=== PATIENT | female | born 2000 | race Hispanic/Latino ===

== ENCOUNTER 2018-09-23 19:03 | Emergency (ER) | payer OTHER ==
[~2018-09-23] VITALS: Ht 152.4 cm; Wt 43.2 kg
[2018-09-23] MEDS ORDERED: BUSP1TAB PO (19:14)
[2018-09-23] MEDS ORDERED: diazePAM 5 MG TAB PO ONE (19:45)
[2018-09-23] MEDS ORDERED: VALI5TAB PO (20:59)
[2018-09-23 21:04] VITALS: BP 96/55
== END 2018-09-23 21:06 | disposition home or self-care (01) ==
LOC: M ED 19:03
DX: M62.830 Muscle spasm of back (principal)

== ENCOUNTER → 2018-10-20 | Outpatient (REF) | payer OTHER ==
[~2018-10-20] MED LIST: BUSP1TAB PO; VALI5TAB PO
== END ==
LOC: M SFHCLERA 15:53
PROVIDERS: ATTEND Nurse Practitioner Family
DX: N92.6 Irregular menstruation, unspecified (principal)

== ENCOUNTER 2019-01-31 13:38 | Emergency (ER) | payer OTHER ==
[~2019-01-31] VITALS: Ht 152.4 cm; Wt 41.5 kg
[2019-01-31 14:00] LABS: URINE PREG TEST NEGATIVE (NEGATIVE)
[2019-01-31] MEDS ORDERED: PYRI1TAB5 PO (17:07)
[2019-01-31] MEDS ORDERED: FLAG500T PO (17:07)
[2019-01-31] MEDS ORDERED: metroNIDAZOLE (FLAGYL) 500 MG TAB PO ONE (17:15)
[2019-01-31] MEDS ORDERED: PHENAZOPYRIDINE 100 MG TAB PO ONE (17:15)
--- NOTE | 2019-01-31 17:15 | REP ---
Clinical: Right lower quadrant pelvic pain . Technique: Transabdominal pelvic ultrasound followed by transvaginal examination for better evaluation of the endometrium and adnexa with color Doppler evaluation of the ovaries. Findings: Bladder is under distended. Normal anteverted uterus measures 7.6 x 3.2 x 4.7 cm . The endometrial complex measures 11.9 mm thickness. No discrete uterine or endometrial abnormalities are appreciated. Bilateral ovaries are normal in appearance and vascularity without evidence for torsion. Right ovary measures 3.2 x 2.0 x 3.0 cm with 2.3 cm hemorrhagic cyst / follicle ; R I = 0.42 . Left ovary measures 2.6 x 1.7 x 2.1 cm ; R I = 0.71 . Small amount of free fluid in the adnexa noted. . Impression: 1. The uterus appears relatively normal. 2. 2.3 cm hemorrhagic cyst in the right ovary possibly related to patient's symptoms. Bilateral ovaries are otherwise normal and without torsion. Electronically Signed by Mikhail Pressley MD 01/31/2019 05:07 P
[2019-01-31 17:19] VITALS: BP 93/54
== END 2019-01-31 17:25 | disposition home or self-care (01) ==
LOC: M ED 13:38
DX: N76.0 Acute vaginitis (principal); Z87.59 Personal history of other complications of pregnancy, childbirth and the puerperium; Z87.440 Personal history of urinary (tract) infections; N83.201 Unspecified ovarian cyst, right side; Z79.899 Other long term (current) drug therapy

== ENCOUNTER 2019-10-10 20:06 | Outpatient (CLI) | payer OTHER ==
[~2019-10-10] VITALS: Ht 152.4 cm; Wt 44.7 kg
[~2019-10-10 20:06] MED LIST changes: +FLAG500T PO; +PYRI1TAB5 PO
[2019-10-10 20:24] VITALS: BP 111/58
[2019-10-10 21:08] LABS: APPEARANCE, URINE CLEAR (CLEAR); BACTERIA, URINE AUTO 1+ (NEGATIVE); BILIRUBIN, URINE AUTO NEGATIVE (NEGATIVE); BLOOD, URINE BLOOD NEGATIVE (NEGATIVE); COLOR, URINE STRAW (YELLOW); GLUCOSE, URINE (UA) AUTO NEGATIVE (NEGATIVE); KETONE, URINE AUTO NEGATIVE (NEGATIVE); LEUKOCYTE ESTERASE, URINE AUTO NEGATIVE (NEGATIVE); NITRITE, URINE AUTO NEGATIVE (NEGATIVE); PROTEIN, URINE AUTO NEGATIVE (NEGATIVE); RBC, URINE AUTO 1 /HPF (0-3); SPECIFIC GRAVITY URINE AUTO 1.001 (1.002-1.035); SQUAMOUS EPITHELIAL CELL UR AU 2 /HPF (0-6); UROBILINOGEN, URINE AUTO 0.2 mg/dL (0.0-2.0); WBC, URINE AUTO 0 /HPF (0-3)
--- NOTE | 2019-10-10 22:16 | IPNPDOC ---
Text Note Date of Service The patient was seen on 10/10/19. NOTE 18 yo at 24+0 weeks gestation presented to L&D with the complaint of abdominal and lower pelvic pain that started this afternoon. She reports having intercourse with her this morning and the pain started several hours after that. She describes it as tightening. It persisted for a few hours but has since resolved while she waited in triage. She denies any vaginal bleeding or leakage of fluid. She endorses excellent movement. She also denies any fevers/chills, SOB, chest pain, or dysuria. Chaperoned by L&D RN Vitals - VSS, afebrile, normotensive, non tachycardic General - AAOX3, sitting up in bed, NAD, pleasant and conversant Abdomen - Soft, gravid. No fundal tenderness. No tenderness to palpation throughout all 4 quadrants of abdomen. Pelvic - Normal external genitalia. Speculum placed into the vagina. Vaginal vault normal. Scant white discharge in vaginal vault. Cervix visualized and normal in appearance. Closed. Speculum removed. Cervix confirmed closed/thick/high, posterior to digital exam. FHR tracing - Appropriate for gestational age. No decels. No ctx on toco. Formal TAUS and TVUS - WHITNEY 13.cm, Placenta normal in appearance and posterior/fundal in location. Cervical length 4.1cm on TVUS with no evidence of funneling. Fetus breech. UA - SG 1.001, neg nitrite, neg leuk est No evidence of labor or infection. Cervix closed/thick/high and length >4cm on formal imaging. UA clean. Pain was completely resolved when patient got to triage. No ctx on toco. Suspect tightening pain related to earlier intercourse today. She has a follow up appointment next week. Return to care sooner for any urgent concerns. All questions answered. DO HU Khan,Brant, I+O VS, Brant, I+O Vital Signs Date Time Temp Pulse Resp B/P (MAP) Pulse Ox O2 Delivery O2 Flow Rate FiO2 10/10/19 20:24 97.7 80 111/58 (75) 97.7 CRISTIAN ANTOINE DO Oct 10, 2019 22:16
--- NOTE | 2019-10-10 22:30 | REPVR ---
PROCEDURE INFORMATION: Exam: US , Limited Exam date and time: 10/10/2019 9:51 PM Age: 18 years old Clinical indication: Lmp or gestational age (in weeks): 24 wks; Labor and delivery abnormalities; Pre-term labor; Without delivery; ; Additional info: 24 weeks , contractions, view placenta, cervix, ervin TECHNIQUE: Imaging protocol: Real-time ultrasound of the maternal uterus with image documentation. Exam focused on the clinical indication. COMPARISON: US PELVIC NON-OB COMPLETE 01/31/2019 4:43 PM (The report from this study was not available for review at the time of this interpretation.) FINDINGS: Last menstrual period: 04/25/2019 GESTATION: Gestation: There is a single live intrauterine gestation. An anatomical survey was not performed. Heart rate: 139 bpm Presentation: Breech Placenta: The location of the placenta is posterior and fundal. No placenta previa or placental abruption is noted. Amniotic fluid: The amniotic fluid index measures 13.5 cm, which is within normal limits. BIOMETRY: Estimated gestational age by LMP: 24 weeks 0 days Estimated due date by LMP: 01/30/2020 MATERNAL: Cervix: The cervix measures 4.1 cm in length. No funneling of the internal os of the cervix is noted. IMPRESSION: Single live intrauterine gestation in breech position. Electronically signed by: Vasile Martinez On 10/10/2019 22:32:29 PM
== END 2019-10-10 22:10 | disposition home or self-care (01) ==
LOC: M LDO 20:06
PROVIDERS: ATTEND Obstetrics & Gynecology
DX: O26.892 Other specified pregnancy related conditions, second trimester (principal); Z3A.24 24 weeks gestation of pregnancy; R10.2 Pelvic and perineal pain
CPT/HCPCS: 59025; 76815; 76817; 81001; 87086; G0378; G0463

== ENCOUNTER → 2019-10-11 | Outpatient (CLI) | payer OTHER ==
--- NOTE | 2019-10-11 11:49 | REP ---
Focused right breast sonography: History: 18-year-old at 23 weeks 2 days with pea-sized palpable lump in the right breast palpated by the patient. This is located laterally at 9 o'clock in the right breast near the axilla region. Findings: The area of the palpable lump is scanned as well as 8 to 10 o'clock region. Heterogeneous fibroglandular background echotexture is seen. No cyst, mass, acoustic shadowing or other abnormality is seen sonographically. Impression: BIRADS category 1 negative right breast sonographic findings. Clinical followup is advised. Electronically Signed by Mingo Jackson MD 10/11/2019 11:50 A
== END ==
LOC: M RAD 10:18
PROVIDERS: ATTEND Registered Nurse Maternal Newborn
DX: O26.892 Other specified pregnancy related conditions, second trimester (principal); N63.10 Unspecified lump in the right breast, unspecified quadrant; Z3A.23 23 weeks gestation of pregnancy

== ENCOUNTER 2019-11-06 23:26 | Outpatient (CLI) | payer OTHER ==
[~2019-11-06] VITALS: Ht 152.4 cm; Wt 48.2 kg
[2019-11-06 23:48] VITALS: BP 102/58
[2019-11-07 00:31] LABS: HEMATOCRIT 31.3 % (36.0-47.0); HEMOGLOBIN 10.7 g/dl (12.0-15.5); MEAN CORPUSCULAR HEMOGLOBIN 32.2 pg (27.0-33.0); MEAN CORPUSCULAR HGB CONC 34.2 g/dl (32.0-36.5); MEAN CORPUSCULAR VOLUME 94.3 fl (80.0-96.0); PLATELET COUNT, AUTOMATED 310 10^3/uL (150-450); RED BLOOD COUNT 3.32 10^6/uL (4.00-5.40); WHITE BLOOD COUNT 9.3 10^3/uL (4.0-10.0)
[2019-11-07 00:31] LABS: APPEARANCE, URINE HAZY (CLEAR); BACTERIA, URINE AUTO 1+ (NEGATIVE); BILIRUBIN, URINE AUTO NEGATIVE (NEGATIVE); BLOOD, URINE BLOOD NEGATIVE (NEGATIVE); COLOR, URINE YELLOW (YELLOW); GLUCOSE, URINE (UA) AUTO NEGATIVE (NEGATIVE); KETONE, URINE AUTO NEGATIVE (NEGATIVE); LEUKOCYTE ESTERASE, URINE AUTO NEGATIVE (NEGATIVE); MUCUS, URINE SMALL (NEGATIVE); NITRITE, URINE AUTO NEGATIVE (NEGATIVE); PROTEIN, URINE AUTO NEGATIVE (NEGATIVE); RBC, URINE AUTO 0 /HPF (0-3); SPECIFIC GRAVITY URINE AUTO 1.009 (1.002-1.035); SQUAMOUS EPITHELIAL CELL UR AU 17 /HPF (0-6); UROBILINOGEN, URINE AUTO 0.2 mg/dL (0.0-2.0); WBC, URINE AUTO 1 /HPF (0-3)
--- NOTE | 2019-11-08 20:25 | HPE ---
DATE OF ADMISSION: 11/07/2019 HISTORY: This lady is a 18-year-old 2, para 0, abortus 1, last menstrual period (LMP) 04/25/19, estimated date of confinement (EDC) 01/30/2020 at 20 weeks of gestation, history of vaginal bleeding times one, more of spotting than bleeding, no contractions and no further discharge. Risk factor she has a low body mass index (BMI), dehydrated, anemia, malnourished and suffers from depression. LABORATORY DATA: O+, HIV negative, hepatitis negative, RPR negative, rubella immune. Varicella immune. Urine negative. Gonorrhea and chlamydia negative. Hemoglobin 10.7, hematocrit 31.3, platelets are 310. Urine 1.009, pH 8, ketones negative, Betke-Kleihauer is pending. Blood pressure 102/58, respirations 16, pulse 78, temperature 97.7. Ultrasound showed vertex presentation. Amniotic fluid normal, heart rate 140, cervix 3.4 cm long and closed. The monitor shows category one strip. No decelerations. Accelerations are noted. No contractions. Moderate variability. Symphysis fundus height is 28, four quadrant bowel sounds are noted. Nontender uterus. Pelvic examination: Cervix is closed, high posterior. No vaginal loss of blood on the finger. PLAN: Plan is to hydrate the patient, discharge the patient, maintain appointment 11/15/2019 and do her 28-week labs prior to appointment. The patient was discharged as undelivered 40-minute discussion with examination. cc: MANAGER PHARMACEUTICAL Tita ROSALES
== END 2019-11-07 01:55 | disposition home or self-care (01) ==
LOC: M LDO 23:26
PROVIDERS: ATTEND Obstetrics & Gynecology
DX: O26.852 Spotting complicating pregnancy, second trimester (principal); Z3A.20 20 weeks gestation of pregnancy; Z68.1 Body mass index [BMI] 19.9 or less, adult; O99.282 Endocrine, nutritional and metabolic diseases complicating pregnancy, second trimester; E86.0 Dehydration; O99.012 Anemia complicating pregnancy, second trimester; D64.9 Anemia, unspecified; O99.342 Other mental disorders complicating pregnancy, second trimester; F32.9 Major depressive disorder, single episode, unspecified; O25.12 Malnutrition in pregnancy, second trimester
CPT/HCPCS: 36415; 59025; 76815; 81001; 85027; 85460; G0378; G0463

== ENCOUNTER → 2019-12-30 | Outpatient (CLI) | payer OTHER | LOC: M LAB 09:53 | PROVIDERS: ATTEND Obstetrics & Gynecology | DX: O26.619 Liver and biliary tract disorders in pregnancy, unspecified trimester (principal); K83.1 Obstruction of bile duct ==

== ENCOUNTER 2020-01-03 12:02 | Inpatient (IN) | payer OTHER ==
[~2020-01-03] VITALS: Ht 152.4 cm; Wt 50.6 kg
[2020-01-03 12:23] VITALS: BP 116/62
[2020-01-03] MEDS ORDERED: PRENTAB9 PO (12:31)
[2020-01-03] MEDS ORDERED: URSO300C3 PO (12:31)
[2020-01-03] MEDS ORDERED: FERR325T3 PO (12:31)
[2020-01-03] MEDS ORDERED: VITA100T59 PO (12:31)
[2020-01-03] MEDS ORDERED: miSOPROStol 50 MCG 1/2 TAB (S0191) PO ONE (13:30)
--- NOTE | 2020-01-03 13:57 | HPEPDOC ---
Obstetrical History & Physical General Date of Admission Jan 03, 2020 at 12:02 History of Present Illness Jamia is a 19yo at 36+1wks gestation, EDC [id number]. EDC by LMP of [id number], c/w 9+1wk US. She endorses +FM, denies LOF/VB/CTX. She is being admitted to D for schedule induction of labor d/t diagnosis of ICHP; betamethasone complete on [id number]. This is complicated by ICHP (Bile Acids 45.6, elevated LFTs) - started on ursodiol Other complications: -underweight with low weight gain (19lbs); Recent GS 06DEC2019 - fetus was 53%tile -Anemia, taking iron/vitamin c GBS Negative, COVID Negative, A Positive blood type OB hx: 1x SAB in 2017, uncomplicated Chief Complaint: Induction of labor Information Provided By: Patient Age: 19 : 2 Term: 0 Pre-term: 0 Abortions: 1 Livin Care Care: Good Care Number of Visits: 9 Dating Final EDC: January 30, 2020 Final EDC for Daily Update: January 30, 2020 Final EDC by: LMP Antepartum Course Height (inches): 60 Pre- weight (lbs.): 90 Admission Weight (lbs.): 109 Change in Weight (lbs.): 19 Past Medical History Past Obstetrical History : Past Obstetrical History: Multigravida [employer]QU[employer]MENT [employer]PERATOR History: Spontaneous Past Medical History Medical History Hip Arthritis Surgical History: Denies/None Family History Significant Family History: No pertinent family hx Social History Marital Status: Family situation: Spouse/partner home Psychosocial History: No pertinent psych hx * Smoker: non-smoker Alcohol: Denies Drugs: denies Imunizations Tdap status: current Influenza Status: current Allergies Coded Allergies: No Known Allergies (Unverified , 01/03/20) Medications Scheduled Ascorbic Acid (Vitamin C) 100 Mg Tablet, 500 MG PO DAILY Ferrous Sulfate (Ferrous Sulfate) 325 Mg Tablet.dr, 325 MG PO DAILY No.137/Iron/Folic Acd ( Vitamin Tablet) 1 Each Tablet, 1 TAB PO DAILY Ursodiol (Ursodiol) 300 Mg Capsule, 300 MG PO TID Physical Examination Physical Examination GENERAL: Alert and oriented times three. ABDOMEN: Gravid and non-tender to touch. FETUS: Is vertex by sterile vaginal examination, confirmed by TAUS. EFW by [place] 5-6lbs HEART RATE: Regular rate. LUNGS: Observed nonlabored breathing. EXTREMITIES: No edema. Vital Signs/I&O O: VSS, normotensive, afebrile FHR: 130s, moderate variability, + accels, no decels noted CTX: occassional, mild by palpation; pt denies feeling VE: L/C/H and posterior Vital Signs Date Time Temp Pulse Resp B/P (MAP) Pulse Ox O2 Delivery O2 Flow Rate FiO2 01/03/20 12:23 98.3 91 116/62 (80) Laboratory Data 24H LABS Laboratory Tests 2 01/03/20 12:12: Serology Scanned Report Hepatitis B Testing Pertinent Laboratoy Data Blood Type: A+ RBC Antibody Screen: Negative HIV: Negative Hepatitis B: Negative Rapid Plasma Reagin: Nonreactive Rubella: Immune Varicella: Immune Chlamydia/Gonorrhea: Negative Group B Streptococcus: Negative Quad Screen Test: Negative Anatomy Ultrasound Ultrasound Date: Sep 13, 2019 Placenta Location: Posterior Normal Anatomy: Yes Placenta Previa: No Steroid Therapy Steroid Therapy: Yes Date #1: Dec 29, 2019 Date #2: Dec 31, 2019 Reason Scheduled IOL at 36+1 weeks d/t diagnosis of ICHP. Assessment/Plan Assessment Jamia is a 19yo at 36+1wks gestation being admitted for IOL d/t ICHP, betamethasone complete. GBS Negative, A Positive, COVID negative. Category I FHT. Plan P: Admit to LND and consent for induction, labor and delivery. PIV start, admission and LFT labs collected PO and IV hydration Start IOL with Buccal Cytotec, 50mcg, with plan to place CRB when cervix adequately ripened Continuous monitoring for 1 hour after cytotec administration, then can be intermittent with Category I tracing CEFM with pitocin, epidural, and/or other than Category I FHT Anticipate Consult with OB as indicated STEVE HOUSE CNM Jan 03, 2020 13:57
[2020-01-03 14:04] LABS: BASO # 0.1 10^3/uL (0.0-0.2); BASO % 0.5 % (0.0-1.0); EOS # 0.1 10^3/uL (0.0-0.5); EOS % 1.2 % (0.0-3.0); HEMATOCRIT 38.1 % (36.0-47.0); HEMOGLOBIN 13.4 g/dl (12.0-15.5); LYMPH # 2.5 10^3/uL (1.5-5.0); LYMPH % 26.2 % (24.0-44.0); MEAN CORPUSCULAR HGB CONC 35.2 g/dl (32.0-36.5); MEAN CORPUSCULAR VOLUME 90.9 fl (80.0-96.0); MONO # 0.8 10^3/uL (0.0-0.8); MONO % 8.8 % (0.0-5.0); NEUTROPHILS # 5.9 10^3/uL (1.5-8.5); NEUTROPHILS % 62.6 % (36.0-66.0); PLATELET COUNT, AUTOMATED 406 10^3/uL (150-450); RED BLOOD COUNT 4.19 10^6/uL (4.00-5.40); WHITE BLOOD COUNT 9.4 10^3/uL (4.0-10.0)
[2020-01-03 14:14] VITALS: BP 116/75
[2020-01-03 14:31] LABS: ALT/SGPT 100 U/L (12-78); BILIRUBIN,TOTAL 0.5 MG/DL (0.2-1.0); CREATININE FOR GFR 0.55 MG/DL (0.55-1.30); GLOMERULAR FILTRATION RATE > 60.0 (>60); LDH LACTATE DEHYDROGENASE 186 U/L (84-246); URIC ACID 4.9 MG/DL (2.6-6.0)
[2020-01-03 15:17] VITALS: BP 127/78
[2020-01-03 16:24] VITALS: BP 107/61
[2020-01-03 17:49] VITALS: BP 111/62
[2020-01-03] MEDS: miSOPROStol 50 MCG 1/2 TAB (S0191) PO SCH ×2 (18:20→22:41)
[2020-01-03 18:21] VITALS: BP 117/68
[2020-01-03] MEDS ORDERED: PROMETHAZINE INJ 25 MG/ML VIAL (J2550) IV ONE (23:45)
[2020-01-04] VITALS (29 sets, daily range): BP systolic 102–139; BP diastolic 55–97
--- NOTE | 2020-01-04 00:27 | IPNPDOC ---
Text Note Date of Service The patient was seen on 01/04/20. NOTE Intrapartum Note Jamia is a 19yo with SIUP at 36w1d undergoing IOL for IHCP with elevated bile acids and very mildly elevated LFTs. Induction was started with oral cytotec, and she has received 3 doses total now. She is quite uncomfortable with ctx and requesting pain meds. Vitals wnl, afebrile Cat I FHRT with bl 120's, +accels, -decels, mod abdias [place]: ctx q1-5min SCE: 1/80/-2, posterior and soft. Patient does not tolerate exam well so will not place goodman cervical balloon at this time Will plan to start pitocin when next cytotec due around 0200 IV stadol 2mg and IV phenergan 12.5mg in latent labor Candidate for epidural in active labor Will continue to closely monitor Safe to proceed Dr. Maegan Puga MD VS,Brant, I+O VS, Brant, I+O Laboratory Tests 01/03/20 13:52 Vital Signs Date Time Temp Pulse Resp B/P (MAP) Pulse Ox O2 Delivery O2 Flow Rate FiO2 01/03/20 18:21 65 16 117/68 (84) 01/03/20 12:23 98.3 Maegan Puga MD Jan 04, 2020 00:27
[2020-01-04] MEDS: BUTORPHANOL 2 MG/ML INJ (J0595) IV PRN ×2 (00:39→05:07)
[2020-01-04] MEDS: OXYTOCIN DRIP 30 UNITS in IV 1 EA IV SCH ×2 (03:04→09:48)
--- NOTE | 2020-01-04 09:10 | IPNPDOC ---
Obstetrical Progress Note Date of Service Jan 04, 2020 Subjective Intrapartum Note S: Received report from Dr. Puga during board sign out and assumed care of Jamia, who is a 19yo with SIUP at 36w2d undergoing IOL for IHCP with elevated bile acids and very mildly elevated LFTs. Induction was started with oral cytotec, and she has received 3 doses total now. Pitocin was started early this morning, but turned off around 0530 after a prolonged deceleration. She has also received Stadol/phenergan x2 for pain medication and she has no complaints of pain at this time. O: VSS, BP normotensive, afebrile FHR 125-130, moderate variability, no accels or decels CTX by [place]: q2.5-5 VE: 1/80/-2, posterior and soft (unchanged from previous exam). Patient does not tolerate exam. A: 19yo at 36+2wks, IOL for ICHP, not in labor, difficult SCE, Category I FHT P: Allow patient to eat and shower, then restart pitocin 2 hours after eating Plan to offer epidural and place CRB when comfortable CEFM x2 Close monitoring of maternal/ status Will continue to closely monitor Safe to proceed Anticipate Consult with OB as indicated Objective Vital Signs Date Time Temp Pulse Resp B/P (MAP) Pulse Ox O2 Delivery O2 Flow Rate FiO2 01/04/20 07:27 68 18 102/55 (71) 01/04/20 05:07 Room Air 01/04/20 00:39 99.2 Assessment Heart Rate Tracing: Category I Assessment and Plan Status: Reassuring Anticipate: Vaginal Delivery STEVE HOUSE CNM Jan 04, 2020 09:10
[2020-01-04] MEDS: ursodioL 300 MG CAP PO SCH ×3 (10:07→21:00)
[2020-01-04] MEDS: SLF 3 ML SYR IV SCH ×2 (10:08→22:00)
[2020-01-04] MEDS ORDERED: LR 1,000 ML IV SCH (10:11)
[2020-01-04] MEDS ORDERED: SLF 3 ML SYR IV PRN (10:15)
--- NOTE | 2020-01-04 12:02 | IPNPDOC ---
Obstetrical Progress Note Date of Service Jan 04, 2020 Subjective Intrapartum Note S: Pitocin restarted at 0948 and pt feeling intermittent pain with contractions. In room for bedside US WHITNEY. O: VSS, BP normotensive, afebrile FHR: 135, moderate variability, + accels , late decelerations and spontaneous decelerations noted startingat 1024, RN in room performing interventions; CTX by TOCO: irregular Pitocin running at 4mu/min; turned off at 1129 VE: deferred WHITNEY: SDP 3.06 in LLQ A: 19yo at 36+2wks, IOL for ICHP, Category II FHT. Dr. Conklin called to review tracing and receive orders. P: CEFM x2 Labs ordered: pre-E, bile salts, Type and Cross, PT/PTT, bilirubin and CBC BPP with SD ratio ordered Plan to restart pitocin and perform SAILING MASTER; if fetus tolerates, will continue induction; if fails, will plan for delivery Close maternal/ monitoring Co-Manage with OB Objective Vital Signs Date Time Temp Pulse Resp B/P (MAP) Pulse Ox O2 Delivery O2 Flow Rate FiO2 01/04/20 11:53 63 18 115/74 (88) 01/04/20 10:48 99.8 01/04/20 05:07 Room Air Assessment Heart Rate Tracing: Category II Sterile Vaginal Examination Postion/Presentation: Cephalic presentation STEVE HOUSE CNM Jan 04, 2020 12:02
[2020-01-04 13:00] LABS: ALT/SGPT 74 U/L (12-78); BILIRUBIN,DIRECT 0.1 MG/DL (0.0-0.2); BILIRUBIN,TOTAL 0.5 MG/DL (0.2-1.0); CREATININE FOR GFR 0.57 MG/DL (0.55-1.30); GLOMERULAR FILTRATION RATE > 60.0 (>60); LDH LACTATE DEHYDROGENASE 167 U/L (84-246); URIC ACID 5.8 MG/DL (2.6-6.0)
[2020-01-04 13:08] LABS: BASO % 0.3 % (0.0-1.0); EOS # 0.1 10^3/uL (0.0-0.5); EOS % 0.7 % (0.0-3.0); HEMATOCRIT 37.8 % (36.0-47.0); HEMOGLOBIN 12.9 g/dl (12.0-15.5); LYMPH # 1.7 10^3/uL (1.5-5.0); MEAN CORPUSCULAR HEMOGLOBIN 31.5 pg (27.0-33.0); MEAN CORPUSCULAR HGB CONC 34.1 g/dl (32.0-36.5); MEAN CORPUSCULAR VOLUME 92.4 fl (80.0-96.0); MONO # 1.1 10^3/uL (0.0-0.8); MONO % 11.1 % (0.0-5.0); NEUTROPHILS % 70.5 % (36.0-66.0); PLATELET COUNT, AUTOMATED 343 10^3/uL (150-450); RED BLOOD COUNT 4.09 10^6/uL (4.00-5.40); WHITE BLOOD COUNT 9.9 10^3/uL (4.0-10.0)
[2020-01-04 14:19] LABS: APPEARANCE, URINE CLEAR (CLEAR); BACTERIA, URINE AUTO 1+ (NEGATIVE); BILIRUBIN, URINE AUTO NEGATIVE (NEGATIVE); BLOOD, URINE BLOOD 2+ (NEGATIVE); COLOR, URINE STRAW (YELLOW); GLUCOSE, URINE (UA) AUTO NEGATIVE (NEGATIVE); KETONE, URINE AUTO NEGATIVE (NEGATIVE); LEUKOCYTE ESTERASE, URINE AUTO NEGATIVE (NEGATIVE); NITRITE, URINE AUTO NEGATIVE (NEGATIVE); PROTEIN, URINE AUTO NEGATIVE (NEGATIVE); RBC, URINE AUTO 0 /HPF (0-3); SPECIFIC GRAVITY URINE AUTO 1.003 (1.002-1.035); SQUAMOUS EPITHELIAL CELL UR AU 1 /HPF (0-6); UROBILINOGEN, URINE AUTO 0.2 mg/dL (0.0-2.0); WBC, URINE AUTO 1 /HPF (0-3)
--- NOTE | 2020-01-04 14:24 | REP ---
REASON: Potential induction. Limited exam was ordered and performed. Multiple ultrasonographic images of the gravid uterus show a single living intrauterine gestation in the cephalic presentation. The subjective amniotic fluid volume is within normal limits. The calculated amniotic fluid index is 12.9 with an expected range 7.6 to 24.8. Doppler interrogation of the heart shows a heart rate of 140 beats per minute. The cervix measures 2.8 cm in length and is closed. biophysical profile score is 2 for breathing, 2 for movement, 2 for tone, and 2 for amniotic fluid volume giving a some total of 8 out of 8. BPD 9.0 cm = 36 weeks 2 days HC 31.7 cm = 35 weeks 4 days AC 30.5 cm = 34 weeks 3 days FL 6.6 cm = 33 weeks 6 days The estimated weight is 2459 grams which is at the 23rd percentile for [id number]-8-day gestational age. Doppler interrogation of the umbilical artery shows an A/B ratio of 2.48. This is within the normal range. IMPRESSION: Single living intrauterine gestation as described above with an estimated gestational age of 34 weeks 5 days via composite criteria and an estimated date of delivery of 02/10/2020 by today's exam. No further evaluation was requested or performed. Electronically Signed by Mateusz Egan DO 01/04/2020 02:29 P
[2020-01-04 14:46] LABS: CREATININE,RANDOM URINE < 13.0 MG/DL; TOTAL PROTEIN,RANDOM URINE 11.9 MG/DL (0.0-12.0)
[2020-01-04] MEDS ORDERED: FENTANYL 2MCG/ML ROPIVACAINE 0.2% IN 0.9% NACL 100ML IVBAG As Ordered ONE (17:15)
[2020-01-04] MEDS ORDERED: EPIDURAL/PCA KEYS XX PRN (19:00)
[2020-01-04] MEDS ORDERED: FENTANYL/ROPIVACAINE/NACL BAG 100 ML EPIDURAL SCH (19:00)
[2020-01-04] MEDS ORDERED: diphenhydrAMINE 50MG/ML VIAL (J1200) IV PRN (19:00)
[2020-01-04] MEDS ORDERED: NALOXONE INJ 0.4MG/1ML VIAL (J2310 PER 1MG) IV PRN (19:00)
[2020-01-04] MEDS ORDERED: EPIDURAL COMMENT XX SCH (19:00)
[2020-01-04] MEDS ORDERED: LACTATED RINGER'S 1000 ML IV PRN (19:00)
[2020-01-04] MEDS ORDERED: ePHEDrine SULFATE 25 MG/5 ML(5MG/ML) SYRINGE IV PRN (19:00)
[2020-01-04] MEDS ORDERED: REFRIGERATOR IV KEYS XX PRN (19:00)
[2020-01-04] MEDS ORDERED: ONDANSETRON 4MG/2ML VIAL IV PRN (19:00)
[2020-01-05] VITALS (33 sets, daily range): BP systolic 108–170; BP diastolic 55–98
[2020-01-05] MEDS: ursodioL 300 MG CAP PO SCH (00:15)
[2020-01-05] MEDS ORDERED: ACETAMINOPHEN 500 MG TAB As Ordered ONE (05:28)
[2020-01-05] MEDS ORDERED: ACETAMINOPHEN 500 MG TAB PO ONE (05:45)
[2020-01-05] MEDS: SLF 3 ML SYR IV SCH (06:00)
[2020-01-05 06:32] LABS: HEMATOCRIT 38.9 % (36.0-47.0); HEMOGLOBIN 13.6 g/dl (12.0-15.5); MEAN CORPUSCULAR HEMOGLOBIN 32.4 pg (27.0-33.0); MEAN CORPUSCULAR VOLUME 92.6 fl (80.0-96.0); PLATELET COUNT, AUTOMATED 312 10^3/uL (150-450); WHITE BLOOD COUNT 11.5 10^3/uL (4.0-10.0)
--- NOTE | 2020-01-05 08:16 | IPNPDOC ---
Obstetrical Progress Note Date of Service Jan 05, 2020 Subjective Intrapartum Note S: Received report from Dr. Conklin during board sign out and assumed care of Jamia, who is a 19yo with SIUP at 36w3d undergoing IOL for IHCP with elevated bile acids and very mildly elevated LFTs. Induction was started with oral cytotec, an d she has received 3 doses total. Pitocin was restarted yesterday afternoon; she received a CRB, now out. She is s/p AROM with clear fluid at [address] Conklin, her cervix is now 9-9.5cm. Currently, Jamia is sleeping comfortably after epidural bolus. O: VSS, BP normotensive, afebrile FHR 150s, minimal variability, +accels, no decels CTX by [place]: q4-5 VE: Deferred A: 19yo at 36+3wks, IOL for ICHP, active labor, Category II FHT P: CEFM x2 Interventions as necessary for Category II FHT Close monitoring of maternal/ status Safe to proceed Anticipate Consult with OB as indicated Objective Vital Signs Date Time Temp Pulse Resp B/P (MAP) Pulse Ox O2 Delivery O2 Flow Rate FiO2 01/05/20 07:11 58 18 136/74 (94) 01/05/20 06:39 98.8 01/04/20 05:07 Room Air Sterile Vaginal Examination Postion/Presentation: Cephalic presentation Assessment and Plan Anticipate: Vaginal Delivery STEVE HOUSE CNM Jan 05, 2020 08:16
--- NOTE | 2020-01-05 08:41 | IPN ---
DATE: 01/04/2020 This lady is a 19-year-old, 2, para 0, who is at 36 weeks and 2 days today. Expected date of confinement (EDC) is 01/30/2020, dated by her last menstrual periods (LMP) of 04/25/2019 with a complementary ultrasound at 9 weeks 1 day. Her risk factors is that she has intrahepatic cholestasis of with bile acids of 45.6 and elevated liver function tests and she was started on Ursodiol, which did not help with her symptoms of itchy palms and itchy feet. She is underweight with low weight gain. GBS negative and COVID negative. On admission, she did not tolerate pelvic examination at all. However, by Valente maneuver, she was found to be vertex presenting, estimated weight was 5-6 pounds. After multiple attempts, she had a pelvic exam, digital exam by Alfred Stone and was found to be posterior, difficult to find the cervix, presenting part was -3. She was then given Cytotec because she was unable to tolerate any pelvic exam and therefore a Zarate balloon catheter was not practical and she had had two episodes of Cytotec. She was also given IV Stadol and Phenergan and did express desire for an epidural when she was in labor. She had on monitor occasional late deceleration after contractions. She had periods of reactivity with moderate variability. She had periods of low baseline and we were unable to proceed because of these late decelerations without a contraction. Our plan of care was to repeat her lab work and perhaps do an early epidural in order to be able to assess the cervix and possibly place a Cook catheter. We discussed with the patient the plan of care and she did have an epidural in place and a Zarate catheter. Her cervix was anterior, 2 cm, maybe 50% effaced, -3 station, not well applied to the cervix. We reviewed with her the intrahepatic cholestasis and the reason for early delivery of the baby because of her elevated bile acids and her elevated liver functions. We did discuss the differential diagnosis of having either HELLP, preeclampsia or acute fatty liver in , but she did not have any skin signs and she did have any clinical impression of these. We talked about the complications of a lady with ICP in the form of intrauterine demise, meconium in the amniotic fluid, presentation to the NICU because of chemistry instability, and the higher the bile acids the greater the risk. The optimum delivery is between 36 and 36 and 6 weeks of gestation. We repeated her chemistry and her blood work. Her white count was 9.9, which was slightly elevated from 9.4, hemoglobin 12.9, hematocrit 37.8 and platelets were 343. Her chemistry indicated that her GFR was greater than 60. Her bile acids are pending. Her ALT went from 100 down to 74. AST was 35. Direct and indirect bilirubin were within normal limits. Her protein creatinine ratio was 0.915. Leukocyte esterase were negative, ketones were negative and urine was 7.0 with a specific gravity of 1.003. On her coagulation panel her fibrinogen was elevated at 656. The rest of the examination was unremarkable. We had turned off the Pitocin and then reinstated it. We did have a category one strip with accelerations. She was normocephalic, atraumatic. Neck full range of motion. Pupils equal and reactive to light. Distal pulses symmetric. No evidence of DVT, PE or superficial phlebitis. Chest was clear bilaterally to bases. No wheezes or rhonchi. No CVA tenderness. The abdomen was soft. Symphysis fundus height was appropriate. Vertex presenting. Four quadrant bowel sounds were noted. There were no rashes, lesions or pruritus. She apparently did not have any significant pruritus while in hospital. She has no arthralgia or myalgia. No complaint joint pain. No complaint cough, wheezes, shortness of breath or dyspnea on exertion. No bleeding. Neuro complete. No frequency or urgency. No nausea, vomiting, diarrhea or constipation. No diabetic issues. No heat or cold insensitivity. She has no past SHIRT MAKER history. No surgical intervention history. Family history is noncontributory. She does not smoke, drink or abuse drugs and there is no domestic violence. She is to a soldier who is very supportive. She has no known allergies. She is GBS negative. Evaluating her ultrasound in order to proceed, amniotic fluid index was 12.9. Her biophysical was 8/8. Her BPD was 9.0, estimated at 36 weeks and 2 days. Estimated weight was 2459 grams, which is in the 23rd percentile for 36 and 2 weeks. The umbilical artery ratio was 2.48, which was within normal limits. The S/D ratio was within normal limits. Vertex presenting. Our plan of care at the present time was to put in a Cook catheter, 60 uterine/40 vaginal, and increase the Pitocin as needed with a normal category one strip and reevaluate the patient in 4 hours if the Cook did not fall out. We also discussed the consent for vaginal delivery which is delivery through the vagina with possible assistance of forceps or vacuum devices if needed for maternal or indications. These are devices that can assist with vaginal delivery when normal pushing efforts cannot achieve delivery on their own or when delivery is needed in an emergency for baby's well-being. Medications may be required to induce or augment labor in order achieve vaginal delivery and episiotomy may be required to help deliver the baby through the vagina. You may also require repair of any lacerations or tears of the vagina or vulva that are caused by delivery and in some cases emergencies arise where the fetus is not tolerating labor in an emergency situation where emergency section will need to be performed and the provider will discuss these with you. It is delivery through an incision in the abdomen. In some situations, it may be safer for the mother and the baby than continuing labor and it is only performed with clinical indications. Risks of vaginal delivery include, but not limited to bleeding, infection, injury to the vagina, pelvic structures, injury to baby, damage to the uterus, reaction to anesthesia, uterine rupture, risk of hysterectomy though remote for life-threatening bleeding issues, or even . Medications used to induce or augment labor may increase risk for infection, uterine tachysystole, uterine rupture, heart rate abnormalities, need for emergency section, or the possibility of hysterectomy for hemorrhage, as this patient is at a hemorrhage risk of almost 5. Also there may be an increase of perineal or vaginal lacerations, risk of urinary or bowel incontinence, increased risk of injury to the baby with bruising scratches, hematomas on the head, or intracranial bleed. We had a 40 to 45 minute discussion. All questions were answered. Safe to proceed. The patient consented.
[2020-01-05] MEDS: PRENATAL VITAMINS CHEWABLE TABLET PO SCH (09:00)
[2020-01-05 10:48] LABS: CORD GAS ABE V -4.1; CORD GAS HCO3 V 20.7 MEQ/L; CORD GAS O2 SAT V 98.2 %; CORD GAS PCO2 V 37.2 mmHg; CORD GAS PH V 7.363 UNITS; CORD GAS PO2 V 86.7 mmHg; CORD GAS SBC V 21.1 MEQ/L; CORD GAS TCO2 V 21.8 MEQ/L
[2020-01-05 10:50] LABS: CORD GAS ABE A -5.2; CORD GAS HCO3 A 18.2 MEQ/L; CORD GAS O2 SAT A 99.9 %; CORD GAS PCO2 A 30.1 mmHg; CORD GAS PH A 7.399 UNITS; CORD GAS PO2 A 169.1 mmHg; CORD GAS SBC A 20.3 MEQ/L; CORD GAS TCO2 A 19.1 MEQ/L
[2020-01-05] MEDS ORDERED: OXYTOCIN DRIP 30 UNITS in IV 1 EA IV SCH (11:25)
[2020-01-05] MEDS ORDERED: ACETAMINOPHEN TAB 650MG DOSE (2X325MG) PO PRN (11:30)
[2020-01-05] MEDS ORDERED: DOCUSATE SODIUM 100 MG CAP PO PRN (11:30)
[2020-01-05] MEDS ORDERED: DIBUCAINE 1% OINTMENT 30GM TOP PRN (11:30)
[2020-01-05] MEDS: ACETAMINOPHEN 500 MG TAB PO PRN ×2 (11:44→17:49)
--- NOTE | 2020-01-05 11:50 | DNPDOC ---
[facility] Delivery Note Delivery Note DATE OF DELIVERY: January 05, 2020 at 10:25am. PREDELIVERY DIAGNOSIS: 36+4 weeks gestation, IOL for ICHP POST DELIVERY DIAGNOSIS: Delivered. PROCEDURE: SUPERVISOR RESPIRATORY: [facility] ANESTHESIA: Epidural ESTIMATED BLOOD LOSS: 250mL. FINDINGS: 5 pound 12 ounce male infant, Score 8/9, Cord Gases WNL ( Arterial pH 7.933; Venous pH 7.363) DELIVERY SUMMARY: Pt found to be C/C/+2 at 0906 this morning, feeling pressure, but no desire to push. Allowed to labor down and started pushing at 0943. She effectively pushed to deliver a viable male over a protected perineum. head delivered slightly asynclitic, MOY and restituted to OA. Left anterior shoulder delivered with ease followed by right posterior shoulder, then remainder of body delivered to maternal abdomen where he was dried and stimulated; strong, lusty cry. At 3 minutes of life, cord clamped x2 and cut by FOB. Cord blood collected at this time for blood gases. Placenta retained and Dr. Puga called to the bedside at 35 minutes after delivery; she was able to deliver placenta; appeared intact with 3VC; placenta sent to pathology d/t ICHP. Fundus firm, EBL 250mL. Pitocin bolus started with delivery of placenta. Upon inspection of vagin, perineum and cervix, left and right labial lacerations presented and repaired with 4-0 vicryl in usual fashion; also noted is a small vaginal sidewall abrasion, bleeding, and repaired with 3-0 vicryl with interrup colin sutures; hemostasis achieved. Family bonding well; anticipate uncomplicated PP course. STEVE HOUSE CNM Jan 05, 2020 11:50
[2020-01-05] MEDS ORDERED: GI COCKTAIL 50ML BTL(HYOSCYAMINE/MAALOX/LIDOCAINE VISCOUS)(1:3:1) PO ONE (18:45)
--- NOTE | 2020-01-05 19:48 | IPNPDOC ---
Text Note Date of Service The patient was seen on 01/05/20. NOTE Called to room I was asked to come evaluate Jamia for chest pain that she has had intermittently the last day or two but all of a sudden really worsened. She stated it was central in her chest, hurt somewhat more with breathing. Vitals done at that nursing assessment included bp of 170/94 with pulse 68, afebrile. I asked for an EKG to be performed which resulted normal sinus rhythm. I then asked for a GI cocktail to be given, as I was on my way in to evaluate Jamia. When I arrived, she stated that her pain had greatly improved (along with her anxiety) after GI cocktail. She notes being really anxious, especially in regards to feeding her baby (trying to breastfeed but baby is pretty sleepy still since delivery at 10am today). At this point she was attempting to nurse baby and was sitting up in bed in NAD, appeared comfortable and was conversant. Given the significant relief she had with GI cocktail, I suspect her chest pain was related to indigestion, though would not rule out manifestation of anxiety. I instructed her to notify her nurse if she has any recurrence of pain or any other symptoms develop and she voiced her understanding. I requested an updated set of vital signs just now. Will continue to closely monitor. MD HU Dupont,Brant, I+O Brant LUI, I+O Laboratory Tests 01/05/20 06:15 Vital Signs Date Time Temp Pulse Resp B/P (MAP) Pulse Ox O2 Delivery O2 Flow Rate FiO2 01/05/20 18:00 97.2 68 18 170/94 (119) 01/04/20 05:07 Room Air I&O- Last 24 Hours up to 6 AM 01/05/20 06:00 Intake Total 1360 ml Output Total 1250 ml Balance 110 ml Maegan Puga MD Jan 05, 2020 19:48
[2020-01-06] MEDS: ACETAMINOPHEN 500 MG TAB PO PRN ×2 (03:24→16:03)
[2020-01-06 05:55] VITALS: BP 135/85
[2020-01-06 06:55] LABS: HEMATOCRIT 35.8 % (36.0-47.0); HEMOGLOBIN 12.4 g/dl (12.0-15.5); MEAN CORPUSCULAR HEMOGLOBIN 31.8 pg (27.0-33.0); MEAN CORPUSCULAR HGB CONC 34.6 g/dl (32.0-36.5); MEAN CORPUSCULAR VOLUME 91.8 fl (80.0-96.0); PLATELET COUNT, AUTOMATED 286 10^3/uL (150-450)
--- NOTE | 2020-01-06 07:41 | IPNPDOC ---
Progress Note Date of Service: Jan 06, 2020 Day#: 1 Progress Note PPD 1 SUBJECT: Jamia is a 19yo [id number] s/p uncomplicated at 36w4d after undergoing IOL for IHCP, doing well day # 1. She has been ambulating, voiding spontaneously without issue and tolerating regular diet. Breast feeding without issue. Reports lochia is like a normal period. No lightheadedness/dizziness. No f/c/n/v/CP/SOB. OBJECTIVE: VITAL SIGNS: Within normal limits, afebrile. Alert and oriented times three. Abdomen: Fundus firm at U-2. Soft, NTTP. No pain with palpation of calves ASSESSMENT: Jamia is a 19yo [id number] s/p uncomplicated at 36w4d after undergoing IOL for IHCP, doing well day # 1. Vitals within normal limits, afebrile, hemodynamically stable with no evidence of infection. PLAN: 1. Routine care 2. Tylenol and Motrin for pain. 3. Encourage breast feeding and ambulation. 4. Undecided on contraception 5. Regular diet 6. Likely discharge home tomorrow Dr. Maegan Puga MD VS, I&O, 24H, [facility] Vital Signs/I&O Vital Signs Date Time Temp Pulse Resp B/P (MAP) Pulse Ox O2 Delivery O2 Flow Rate FiO2 01/06/20 05:55 97.3 66 16 135/85 (102) 01/04/20 05:07 Room Air I&O- Last 24 Hours up to 6 AM 01/06/20 06:00 Intake Total 679 ml Output Total 850 ml Balance -171 ml Laboratory Data 24H LABS Laboratory Tests 2 01/05/20 10:40: Cord Arterial Blood pH 7.399, Cord Arterial Blood PCO2 30.1, Cord Arterial Blood PO2 169.1, Cord Arterial Blood HCO3 18.2, Cord Arterial Blood Total CO2 19.1, Cord Arterial Blood Base Excess -5.2, Cord Arterial Base Excess (Standard 20.3, Cord Arterial Bld Oxygen Saturation 99.9, Cord Venous Blood pH 7.363, Cord Venous Blood PCO2 37.2, Cord Venous Blood PO2 86.7, Cord Venous Blood HCO3 20.7, Cord Venous Blood Total CO2 21.8, Cord Venous Base Excess (Actual) -4.1, Cord Venous Base Excess (Standard) 21.1, Cord Venous Blood Oxygen Saturation 98.2 01/06/20 06:31: Nucleated Red Blood Cells % (auto) 0.0 CBC/BMP Laboratory Tests 01/06/20 06:31 Maegan Puga MD Jan 06, 2020 07:41
[2020-01-06] MEDS: PRENATAL VITAMINS CHEWABLE TABLET PO SCH (08:12)
[2020-01-06 18:00] VITALS: BP 121/67
--- NOTE | 2020-01-06 19:29 | ECGEPIP ---
[facility] Test Date: 2020-01-05 Pat Name: YAMINI DRUMMOND Department: Room: [place] [address] Gender: Female Data Entry Assistant: : 2000 Requested By: Maegan Shirley Order Number: [id number] Reading MD: Luis Llanes Measurements Intervals [place] Rate: 93 P: 17 GA: 138 QRS: 61 QRSD: 74 T: 55 QT: 339 QTc: 422 Interpretive Statements Normal sinus rhythm Nonspecific T wave abnormality Comparison tracing not on file Electronically Signed on 01-06-2020 19:29:18 EDT by Luis Llanes
[2020-01-06] MEDS ORDERED: IBUPROFEN 800 MG TAB PO PRN (20:00)
[2020-01-07 06:00] VITALS: BP 118/58
[2020-01-07] MEDS ORDERED: DOCU100C16 PO (06:52)
[2020-01-07] MEDS ORDERED: DIBU10OI TOP (06:52)
[2020-01-07] MEDS ORDERED: PRENCHW PO (06:52)
[2020-01-07] MEDS ORDERED: IBUP80TA PO (06:52)
[2020-01-07 07:04] LABS: HEMOGLOBIN 11.5 g/dl (12.0-15.5); MEAN CORPUSCULAR HEMOGLOBIN 32.3 pg (27.0-33.0); MEAN CORPUSCULAR HGB CONC 34.8 g/dl (32.0-36.5); MEAN CORPUSCULAR VOLUME 92.7 fl (80.0-96.0); PLATELET COUNT, AUTOMATED 300 10^3/uL (150-450); RED BLOOD COUNT 3.56 10^6/uL (4.00-5.40); WHITE BLOOD COUNT 9.1 10^3/uL (4.0-10.0)
[2020-01-07] MEDS: PRENATAL VITAMINS CHEWABLE TABLET PO SCH (08:35)
--- NOTE | 2020-01-11 13:13 | DSES ---
DATE OF ADMISSION: 01/03/2020 DATE OF DISCHARGE: 01/07/2020 This is a 19-year-old, 2, now para 1, admitted at 36 and 1 week of gestation for induction of labor because of intrahepatic cholestasis of . Her bile salts were elevated. She had a spontaneous vaginal delivery, a male , 5 pounds 12 ounces, scores of 8 and 9 at 1 and 5 minutes, respectively. Arterial pH 7.33, base excess -3.6. She did have an epidural in place. On her second day, we discussed phlebitis, cystitis, mastitis, endometritis, and cellulitis, diet, exercise, pain management, perineal, breast, and wound care. She has not picked up her medications at [place], and it was explained to her that she has to do that today because it is Friday, and they will be closed on the weekend. Her discharge vital signs: Her blood pressure is 118/58, respirations 17, pulse 84, temperature is 98.4. Her admitting hemoglobin was 13.4, hematocrit 38.1, and platelets were 406. Discharge hemoglobin 12.4, hematocrit 35.8, and platelets were 286. In her chemistry, her GFR was greater than 60. Her bile acids were 30.5 which is elevated. Her original bile acids were 45.0. Her ALT is elevated at 100. Her LDH and AST are within normal limits. Her total bilirubin is within normal limits. Uric acid is 4.9. The rest of the examination unremarkable. Normocephalic, atraumatic. Neck: Full range of motions. Pupils equal and reactive to light. Distal pulses symmetric. No evidence of deep venous thrombosis (DVT), pulmonary embolism (PE), or superficial phlebitis. Chest is clear bilaterally to bases. No wheezes or rhonchi. No costovertebral angle (CVA) tenderness. Abdomen: Soft. Uterus two below. Lochia is moderate. Four-quadrant bowel sounds are noted. No rashes. She has no nausea, vomiting, diarrhea, or constipation. No urgency or frequency. Reduction in the in the palms and the soles of her feet as her bile acids are resolving. In summary, we have a pretermer at 36 and 1, induced for intrahepatic cholestasis of . Discharged improved.
== END 2020-01-07 12:30 | disposition home or self-care (01) | DRG 805 ==
LOC: M LDI 12:02 → M OBS 01-05 13:41
PROVIDERS: ADMIT Registered Nurse Maternal Newborn; ATTEND Registered Nurse Maternal Newborn
PROC: 3E033VJ Introduction of Other Hormone into Peripheral Vein, Percutaneous Approach (ICD-10-PCS; 2020-01-03)
PROC: 3E0DXGC Introduction of Other Therapeutic Substance into Mouth and Pharynx, External Approach (ICD-10-PCS; 2020-01-03)
PROC: 10E0XZZ Delivery of Products of Conception, External Approach (ICD-10-PCS; principal; 2020-01-05)
DX: O26.62 Liver and biliary tract disorders in childbirth (principal); Z37.0 Single live birth; K83.1 Obstruction of bile duct; Z3A.36 36 weeks gestation of pregnancy

== ENCOUNTER 2020-05-01 13:53 | Emergency (ER) | payer OTHER ==
[~2020-05-01] VITALS: Ht 152.4 cm; Wt 43.1 kg
[~2020-05-01 13:53] MED LIST changes: +DIBU10OI TOP; +DOCU100C16 PO; +FERR325T3 PO; +IBUP80TA PO; +PRENCHW PO; +PRENTAB9 PO; +URSO300C3 PO; +VITA100T59 PO
[2020-05-01] MEDS ORDERED: BUSPAR (14:03)
[2020-05-01] MEDS ORDERED: ANUS2.5C2 TOP (16:30)
[2020-05-01 16:39] VITALS: BP 111/69
== END 2020-05-01 16:40 | disposition home or self-care (01) ==
LOC: M ED 13:53
DX: K64.8 Other hemorrhoids (principal); K62.89 Other specified diseases of anus and rectum; R59.0 Localized enlarged lymph nodes; D64.9 Anemia, unspecified; M19.90 Unspecified osteoarthritis, unspecified site; Z79.899 Other long term (current) drug therapy

== ENCOUNTER 2021-06-22 18:28 | Emergency (ER) | payer OTHER ==
[~2021-06-22] VITALS: Ht 152.4 cm; Wt 44.1 kg
[~2021-06-22 18:28] MED LIST changes: +ANUS2.5C2 TOP; +BUSPAR; -DIBU10OI TOP; +DIBU28OI2 TOP
[2021-06-22 18:30] VITALS: BP 106/58
[2021-06-22] MEDS ORDERED: FOLI1TAB11 PO (18:36)
--- OUTSIDE RECORDS SUMMARY | 2021-06-22 18:40 | CCD ---
Author Author [facility] Organization [facility] Address Unknown Phone Unavailable Support Name Relationship Address Phone SERENITY DRUMMOND Next Of Kin [address] [place] [address] UE Next Of Kin Unknown Unavailable JUANY DRUMMOND Next Of Kin [address] [place] [address] SERENITY DRUMMOND ECON [address] [place] [address] Unavailable Re-disclosure Warning The records that you are about to access may contain information from federally-assisted alcohol or drug abuse programs. If such information is present, then the following federally mandated warning applies: This information has been disclosed to you from records protected by federal confidentiality rules (42 CFR part 2). The federal rules prohibit you from making any further disclosure of this information unless further disclosure is expressly permitted by the written consent of the person to whom it pertains or as otherwise permitted by 42 CFR part 2. A general authorization for the release of medical or other information is NOT sufficient for this purpose. The Federal rules restrict any use of the information to criminally investigate or prosecute any alcohol or drug abuse patient.The records that you are about to access may contain highly sensitive health information, the redisclosure of which is protected by Article 27-F of the [facility] Public Health law. If you continue you may have access to information: Regarding HIV / AIDS; Provided by facilities licensed or operated by the [facility] Office of Mental Health; or Provided by the [facility] Office for People With Developmental Disabilities. If such information is present, then the following [facility] mandated warning applies: This information has been disclosed to you from confidential records which are protected by state law. State law prohibits you from making any further disclosure of this information without the specific written consent of the person to whom it pertains, or as otherwise permitted by law. Any unauthorized further disclosure in violation of state law may result in a fine or senior living sentence or both. A general authorization for the release of medical or other information is NOT sufficient authorization for further disc losure. Immunizations Vaccine Date Status Description Data Source(s) COVID-19 VACCINE Moderna 02/03/2021 12:00:00 AM EDT completed [facility] Vaccine Series Complete: YESThis Data wa s Submitted to [facility] Via [employer]. COVID-19 VACCINE Moderna 01/06/2021 12:00:00 AM EDT completed [employer] Vaccine Series Complete: NOThis Data was Submitted to [facility] Via [employer]. Medications No Information Insurance Providers Payer name Policy type / Coverage type Policy ID Covered libertarian ID Covered libertarian's relationship to richardson Policy Richardson Plan Information [facility] [id number] [facility] [id number] [facility] [id number] [facility] [id number] ANSI-Not a Secondary Insurance [id number] ANSI-Not a Secondary Insurance [id number] Problems, Conditions, and Diagnoses No Information Surgeries/Procedures No Information Results No Information Social History No Information
--- OUTSIDE RECORDS SUMMARY | 2021-06-22 23:22 | CCD ---
Author Author [facility] Organization [facility] Address Unknown Phone Unavailable Support Name Relationship Address Phone SERENITY DRUMMOND Next Of Kin [address] [place] [address] UE Next Of Kin Unknown Unavailable JUANY DRUMMOND Next Of Kin [address] [place] [address] SERENITY DRUMMOND ECON [address] [place] [address] Unavailable Re-disclosure Warning The records that you [...] is protected by Article 27-F of the [facility] Public Health law. If you continue you may have access to information: Regarding HIV / AIDS; Provided by facilities licensed or operated by the [facility] Office of Mental Health; or Provided by the [facility] Office for People With Developmental Disabilities. If such information is present, then the following [facility] mandated warning applies: This information has been [...] law may result in a fine or [place] health [place] sentence or both. A general authorization for the release of medical or other information is NOT sufficient authorization for further disc losure. Immunizations Vaccine Date Status Description Data Source(s) COVID-19 VACCINE Moderna 02/03/2021 12:00:00 AM EDT completed [employer] Vaccine Series Complete: YESThis Data wa s Submitted to [facility] Via [employer]. COVID-19 VACCINE Moderna 01/06/2021 12:00:00 AM EDT completed [employer] Vaccine Series Complete: NOThis Data was Submitted to [facility] Via [employer]. Medications No Information Insurance Providers Payer name Policy type / Coverage type Policy ID Covered libertarian ID Covered libertarian's relationship to richardson Policy Richardson Plan Information [facility] [id number] [facility] [id number] [facility] [id number] [facility] [id number] ANSI-Not a Secondary Insurance [id number] ANSI-Not a Secondary Insurance [id number] Problems, Conditions, and Diagnoses No Information Surgeries/Procedures No Information Results No Information Social History No Information
== END 2021-06-22 23:27 | disposition left against medical advice (07) ==
LOC: M ED 18:28
DX: Z53.21 Procedure and treatment not carried out due to patient leaving prior to being seen by health care provider (principal)

== ENCOUNTER → 2021-06-25 | Outpatient (CLI) | payer OTHER ==
[~2021-06-25] MED LIST changes: +FOLI1TAB11 PO
--- NOTE | 2021-06-25 15:41 | REP ---
INDICATION: PREG 7+WKS BLEEDING CRAMPING ? VIABILITY. COMPARISON: None. TECHNIQUE: Real-time sonographic evaluation of gravid uterus performed. FINDINGS: There is a single living intrauterine gestation with an estimated gestational age of 7 weeks 0 days based on a crown-rump length of 10 mm. EDC 02/11/2022. heart rate 160 beats per minute. A subchorionic hemorrhage is suspected measuring 2.6 x 2.6 x 1.8 cm. There appears to be a corpus luteum in the left ovary 1.3 cm in diameter. Blood flow seen in each ovary with duplex Doppler evaluation, with no torsion. IMPRESSION: Single living intrauterine gestation estimated gestational age 7 weeks 0 days, EDC 02/11/2022. heart rate 160 beats per minute. Subchorionic hemorrhage suspected 2.6 x 2.6 x 1.8 cm. <Electronically signed by Matt Beckwith > 06/25/21 1532
== END ==
LOC: M RAD 14:41
PROVIDERS: ATTEND Obstetrics & Gynecology
DX: O20.9 Hemorrhage in early pregnancy, unspecified (principal); Z3A.01 Less than 8 weeks gestation of pregnancy

== ENCOUNTER → 2021-10-08 | Outpatient (CLI) | payer OTHER ==
[2021-10-08 13:37] LABS: HEMATOCRIT 34.3 % (36.0-47.0); HEMOGLOBIN 11.6 g/dl (12.0-15.5); MEAN CORPUSCULAR HEMOGLOBIN 31.7 pg (27.0-33.0); MEAN CORPUSCULAR HGB CONC 33.8 g/dl (32.0-36.5); MEAN CORPUSCULAR VOLUME 93.7 fl (80.0-96.0); PLATELET COUNT, AUTOMATED 398 10^3/uL (150-450); RED BLOOD COUNT 3.66 10^6/uL (4.00-5.40); WHITE BLOOD COUNT 6.6 10^3/uL (4.0-10.0)
[2021-10-08 13:42] LABS: APPEARANCE, URINE CLEAR (CLEAR); BACTERIA, URINE AUTO 1+ (NEGATIVE); BILIRUBIN, URINE AUTO NEGATIVE (NEGATIVE); BLOOD, URINE BLOOD NEGATIVE (NEGATIVE); COLOR, URINE YELLOW (YELLOW); GLUCOSE, URINE (UA) AUTO NEGATIVE (NEGATIVE); KETONE, URINE AUTO NEGATIVE (NEGATIVE); LEUKOCYTE ESTERASE, URINE AUTO TRACE (NEGATIVE); MUCUS, URINE SMALL (NEGATIVE); NITRITE, URINE AUTO NEGATIVE (NEGATIVE); PROTEIN, URINE AUTO NEGATIVE (NEGATIVE); RBC, URINE AUTO 0 /HPF (0-3); SPECIFIC GRAVITY URINE AUTO 1.009 (1.002-1.035); SQUAMOUS EPITHELIAL CELL UR AU 4 /HPF (0-6); TRANSITIONAL EPITHELIAL AUTO <1 /HPF; UROBILINOGEN, URINE AUTO 0.2 mg/dL (0.0-2.0); WBC, URINE AUTO 2 /HPF (0-3)
[2021-10-08 14:04] LABS: ALBUMIN 2.6 GM/DL (3.2-5.2); ALT/SGPT 20 U/L (12-78); AMYLASE 48 U/L (25-115); BILIRUBIN,TOTAL 0.1 MG/DL (0.2-1.0); BLOOD UREA NITROGEN 4 MG/DL (7-18); CALCIUM LEVEL 8.7 MG/DL (8.5-10.1); CARBON DIOXIDE LEVEL 26 MEQ/L (21-32); CHLORIDE LEVEL 106 MEQ/L (98-107); CREATININE FOR GFR 0.43 MG/DL (0.55-1.30); GLOMERULAR FILTRATION RATE > 60.0 (>60); GLUCOSE, FASTING 73 MG/DL (70-100); LIPASE 75 U/L (73-393); SODIUM LEVEL 136 MEQ/L (136-145); TOTAL PROTEIN 6.6 GM/DL (6.4-8.2)
== END ==
LOC: M LAB 12:34
PROVIDERS: ATTEND Obstetrics & Gynecology
DX: R79.89 Other specified abnormal findings of blood chemistry (principal)

== ENCOUNTER 2021-11-16 15:31 | Outpatient (CLI) | payer OTHER ==
[~2021-11-16] VITALS: Ht 152.4 cm; Wt 49.4 kg
[2021-11-16 15:53] VITALS: BP 110/58
[2021-11-16] MEDS ORDERED: VITC1TAB PO (16:58)
[2021-11-16] MEDS ORDERED: PRENTAB9 PO (16:58)
[2021-11-16] MEDS ORDERED: FERR325T81 PO (16:58)
[2021-11-16] MEDS ORDERED: LR 1,000 ML IV SCH (17:35)
[2021-11-16] MEDS ORDERED: LR 1,000 ML IV ONE (17:35)
[2021-11-16 17:37] VITALS: BP 102/53
[2021-11-16 18:18] LABS: HEMATOCRIT 31.7 % (36.0-47.0); HEMOGLOBIN 10.6 g/dl (12.0-15.5); MEAN CORPUSCULAR HEMOGLOBIN 30.2 pg (27.0-33.0); MEAN CORPUSCULAR HGB CONC 33.4 g/dl (32.0-36.5); MEAN CORPUSCULAR VOLUME 90.3 fl (80.0-96.0); PLATELET COUNT, AUTOMATED 443 10^3/uL (150-450); RED BLOOD COUNT 3.51 10^6/uL (4.00-5.40)
[2021-11-16 18:26] VITALS: BP 113/59
[2021-11-16] MEDS ORDERED: PIPERACILLIN/TAZOBACTAM SOD 2.25 GM in D5W MINI-BAG PLUS 50 ML IV ONE (19:10)
== END 2021-11-16 20:00 | disposition home or self-care (01) ==
LOC: M LDO 15:31
PROVIDERS: ATTEND Obstetrics & Gynecology
DX: O26.892 Other specified pregnancy related conditions, second trimester (principal); N13.30 Unspecified hydronephrosis; Z3A.27 27 weeks gestation of pregnancy; O99.012 Anemia complicating pregnancy, second trimester; D64.9 Anemia, unspecified
CPT/HCPCS: 59025; 76775; 76815; 76819; 76820; 81001; 85027; 87086; 96361; 96365; G0378; G0463; J2543

== ENCOUNTER → 2021-11-23 | Outpatient (CLI) | payer OTHER ==
[~2021-11-23] MED LIST changes: +FERR325T81 PO; +VITC1TAB PO
[2021-11-23 12:50] LABS: ALBUMIN 2.6 GM/DL (3.2-5.2); ALT/SGPT 40 U/L (12-78); BILIRUBIN,TOTAL 0.5 MG/DL (0.2-1.0); BLOOD UREA NITROGEN 6 MG/DL (7-18); CALCIUM LEVEL 8.5 MG/DL (8.5-10.1); CARBON DIOXIDE LEVEL 24 MEQ/L (21-32); CHLORIDE LEVEL 107 MEQ/L (98-107); CREATININE FOR GFR 0.44 MG/DL (0.55-1.30); GLOMERULAR FILTRATION RATE > 60.0 (>60); GLUCOSE, FASTING 70 MG/DL (70-100); POTASSIUM SERUM 3.9 MEQ/L (3.5-5.1); SODIUM LEVEL 136 MEQ/L (136-145); TOTAL PROTEIN 6.5 GM/DL (6.4-8.2)
== END ==
LOC: M LAB 11:36
PROVIDERS: ATTEND Obstetrics & Gynecology
DX: O26.619 Liver and biliary tract disorders in pregnancy, unspecified trimester (principal)

== ENCOUNTER → 2021-11-28 | Outpatient (CLI) | payer OTHER | LOC: M WHC 10:57 | PROVIDERS: ATTEND Obstetrics & Gynecology | DX: O26.63 Liver and biliary tract disorders in the puerperium (principal); Z3A.29 29 weeks gestation of pregnancy; K83.1 Obstruction of bile duct ==